=== PATIENT | male | born 1965 | race Hispanic/Latino ===

== ENCOUNTER 2018-10-01 13:56 | Outpatient (CLI) | payer OTHER ==
--- NOTE | 2018-10-01 15:06 | Magnetic Resonance Report ---
MR LE nonjoint RT wo con INDICATION / CLINICAL INFORMATION: RIGHT POSTERIOR FOOT PAIN. TECHNIQUE: Multiplanar, multisequence MR images were obtained. COMPARISON: None available. FINDINGS: There is marked thickening and mild abnormal signal in the distal Achilles tendon representing signif icant tendinosis. There is a tiny partial tear near the insertion. No Shay's deformity is identifi edremainder. The remainder of the tendons of the ankle are normal. Visualized ligaments are intact. P lantar fascia is normal. No fracture is seen.. IMPRESSION: 1. Thickening and mild abnormal signal in the distal Achilles tendon representing tendinosis. There i s a tiny partial tear near the insertion on the calcaneus. 2. No Shay's deformity identified Signer Name: Crow Gibbs MD FACMonty Signed: 10/01/2018 3:02 PM Workstation Name: [id number]
== END 2018-10-01 13:57 | disposition home or self-care (01) ==
LOC: MRI 13:56
PROVIDERS: ATTEND Internal Medicine
DX: M25.571 Pain in right ankle and joints of right foot (principal)